=== PATIENT | male | born 1965 | race Caucasian/White ===

== ENCOUNTER 2018-08-28 06:36 | Emergency (ER) | payer OTHER ==
[2018-08-28] MEDS ORDERED: DERMABOND SKIN ADHESIVE TOP ONE (07:06)
--- NOTE | 2018-08-28 07:16 | ER ---
Nurse's Notes [facility] Name: Thomas Méndez Age: 53 yrs Sex: Male : 1965 Arrival Date: 08/28/2018 Time: 06:37 Bed 18 Private MD: Dev Ken Diagnosis: Laceration without foreign body of left eyelid and periocular area Presentation: 08/28 06:55 Presenting complaint: Patient states: he was out moving his tomato stakes and bb accidently cut his face below his left eye approx an hour ago has no loss of vision and washed the wound himself with soap and water prior to arrival. Transition of care: patient was not received from another setting of care. Complicating Factors: There are no complicating factors for this patient. Onset of symptoms was August 28, 2018. Risk Assessment: Do you want to hurt yourself or someone else? Patient reports no desire to harm self or others. Initial Sepsis Screen: Does the patient meet any 2 criteria? No. Patient's initial sepsis screen is negative. Does the patient have a suspected source of infection? No. Patient's initial sepsis screen is negative. Care prior to arrival: None. 06:55 Method Of Arrival: Ambulatory bb 06:55 Acuity: ANNABELLE 4 bb Triage Assessment: 06:59 General: Appears in no apparent distress. uncomfortable, Behavior is calm, cooperative, hj appropriate for age. Pain: Complains of pain in left lower eyelid. Injury Description: Laceration sustained to left lower eyelid. Historical: - Allergies: 06:59 PENICILLINS; bb - Home Meds: 06:59 nasal spray [Active]; antihistamine [Active]; bb - PMHx: 06:59 None; bb - PSHx: 06:59 Tonsillectomy; tib-fib fracture; femur fracture; bb - Immunization history:: Adult Immunizations up to date, Last tetanus immunization: up to date Adult Immunizations up to date, Last tetanus immunization: up to date. - Social history:: Smoking status: Patient/guardian denies using tobacco, Smoking status: Patient/guardian denies using tobacco, Patient/guardian denies using alcohol. - Ebola Screening: : No symptoms or risks identified at this time Patient negative for fever greater than or equal to 101.5 degrees Fahrenheit, and additional compatible Ebola Virus Disease symptoms Patient denies exposure to infectious person Patient denies travel to an Ebola-affected area in the 21 days before illness onset. Screenin:58 Abuse screen: Denies threats or abuse. Denies injuries from another. Nutritional hj screening: No deficits noted. Tuberculosis screening: No symptoms or risk factors identified. Fall Risk None identified. Assessment: 07:00 Musculoskeletal: No signs and/or symptoms reported regarding the musculoskeletal hj system. Injury Description: Laceration is clean. 07:21 Reassessment: steri strips applied. hj Vital Signs: 06:57 BP 134 / 93; Pulse 71; Resp 18; Temp 98.0(TE); Pulse Ox 98% on R/A; Weight 65.77 kg; hj Height 5 ft. 6 in. (167.64 cm); 06:57 Body Mass Index 23.40 (65.77 kg, 167.64 cm) ED Course: 06:37 Patient arrived in ED. am2 06:38 Dev Ken MD is Private Physician. am2 06:46 Tasneem Jones FNP-C is [facility]. kb 06:46 Dom Laird MD is Attending Physician. kb 06:55 Dony Valenzuela, RN is Primary Nurse. hj 06:57 Triage completed. bb 06:59 Arm band placed on. hj 07:01 Patient has correct armband on for positive identification. Bed in low position. Call hj light in reach. Side rails up X 1. 07:20 No provider procedures requiring assistance completed. Patient did not have IV access hj during this emergency room visit. Administered Medications: No medications were administered Outcome: 07:15 Discharge ordered by . kb 07:20 Discharged to home ambulatory. hj 07:20 Condition: stable 07:20 Discharge instructions given to patient, Instructed on discharge instructions, follow up and referral plans. wound care, Demonstrated understanding of instructions, follow-up care, wound care. 07:21 Patient left the ED. Signatures: Tasneem Jones FNP-C FNP-Ckb Ballard, Brenda RN Dony Gonzalez, RN Jenna Aguirre am2
--- NOTE | 2018-08-28 07:16 | EDPHYS ---
Physician Documentation [facility] Name: Thomas Méndez Age: 53 yrs Sex: Male : 1965 Arrival Date: 08/28/2018 Time: 06:37 Bed 18 Private MD: Dev Ken ED Physician Dom Laird HPI: 08/28 06:56 This 53 yrs old Male presents to ER via Unassigned with complaints of kb Laceration - under left eye. 06:56 The patient has a laceration related to: moving tomato plants occurred outdoors, and kb there are no complicating factors. The injury was accidental. The laceration(s) is(are) located on the below left eye. Onset: The symptoms/episode began/occurred just prior to arrival. Associated signs and symptoms: The patient has no apparent associated signs or symptoms. The patient has not experienced similar symptoms in the past. The patient has not recently seen a physician. Pt reports laceration to face, just below left eye. States he was moving tomato plants and the stand cut him just below glasses. No visual changes. Bleeding controlled. . Historical: - Allergies: 06:59 PENICILLINS; bb - Home Meds: 06:59 nasal spray [Active]; antihistamine [Active]; bb - PMHx: 06:59 None; bb - PSHx: 06:59 Tonsillectomy; tib-fib fracture; femur fracture; bb - Immunization history:: Adult Immunizations up to date, Last tetanus immunization: up to date Adult Immunizations up to date, Last tetanus immunization: up to date. - Social history:: Smoking status: Patient/guardian denies using tobacco, Smoking status: Patient/guardian denies using tobacco, Patient/guardian denies using alcohol. - Ebola Screening: : No symptoms or risks identified at this time Patient negative for fever greater than or equal to 101.5 degrees Fahrenheit, and additional compatible Ebola Virus Disease symptoms Patient denies exposure to infectious person Patient denies travel to an Ebola-affected area in the 21 days before illness onset. ROS: 06:58 Constitutional: Negative for fever, chills, and weight loss, Cardiovascular: Negative kb for chest pain, palpitations, and edema, Respiratory: Negative for shortness of breath, cough, wheezing, and pleuritic chest pain, Abdomen/GI: Negative for abdominal pain, nausea, vomiting, diarrhea, and constipation, MS/Extremity: Negative for injury and deformity, Neuro: Negative for headache, weakness, numbness, tingling, and seizure. 06:58 Skin: Positive for laceration(s), of the below left eye. Exam: 06:59 Constitutional: This is a well developed, well nourished patient who is awake, alert, kb and in no acute distress. Head/Face: Normocephalic, atraumatic. Chest/axilla: Normal chest wall appearance and motion. Nontender with no deformity. No lesions are appreciated. Cardiovascular: Regular rate and rhythm with a normal S1 and S2. No gallops, murmurs, or rubs. Normal PMI, no JVD. No pulse deficits. Respiratory: Lungs have equal breath sounds bilaterally, clear to auscultation and percussion. No rales, rhonchi or wheezes noted. No increased work of breathing, no retractions or nasal flaring. Abdomen/GI: Soft, non-tender, with normal bowel sounds. No distension or tympany. No guarding or rebound. No evidence of tenderness throughout. MS/ Extremity: Pulses equal, no cyanosis. Neurovascular intact. Full, normal range of motion. Neuro: Awake and alert, GCS 15, oriented to person, place, time, and situation. Cranial nerves II-XII grossly intact. Motor strength 5/5 in all extremities. Sensory grossly intact. Cerebellar exam normal. Normal gait. 06:59 Skin: injury, laceration(s), the wound is approximately 4 cm(s), of the below left eye, that can be described as clean, no foreign body, linear, without bleeding, well approximated without closure. Vital Signs: 06:57 BP 134 / 93; Pulse 71; Resp 18; Temp 98.0(TE); Pulse Ox 98% on R/A; Weight 65.77 kg; hj Height 5 ft. 6 in. (167.64 cm); 06:57 Body Mass Index 23.40 (65.77 kg, 167.64 cm) hj Laceration: 07:00 Wound Repair of 4cm ( 1.6in ) subcutaneous laceration to below left eye. Linear kb shaped.. Distal neuro/vascular/tendon intact. Wound prep: Moderate cleansing, Wound irrigation. Skin closed with thin layer Adhesive skin closure using Dermabond. Patient tolerated well. MDM: 06:46 Patient medically screened. kb 06:55 Data reviewed: vital signs, nurses notes. Data interpreted: Pulse oximetry: on room air kb is 100 %. Interpretation: normal. Counseling: I had a detailed discussion with the patient and/or guardian regarding: the historical points, exam findings, and any diagnostic results supporting the discharge/admit diagnosis, the need for outpatient follow up, a family practitioner, to return to the emergency department if symptoms worsen or persist or if there are any questions or concerns that arise at home. 08/28 06:56 Order name: Dermabond; Complete Time: 07:13 kb Administered Medications: No medications were administered Disposition: 09:58 Co-signature as Attending Physician, Dom Laird MD I agree with the assessment and ezra plan of care. Disposition: 08/28/18 07:15 Discharged to Home. Impression: Laceration without foreign body of left eyelid and periocular area. - Condition is Stable. - Discharge Instructions: Facial Laceration, [id number]. - Medication Reconciliation Form, Thank You Letter, Antibiotic Education, Prescription Opioid Use form. - Follow up: Emergency Department; When: As needed; Reason: Worsening of condition. Follow up: Private Physician; When: 2 - 3 days; Reason: Recheck today's complaints, Continuance of care, Re-evaluation by your physician. Signatures: Tasneem Jones, WATER RESOURCES PROGRAM DIRECTOR-C WATER RESOURCES PROGRAM DIRECTOR-Zbigniewb Dom Laird MD MD cha Ballard, Brenda, RN RN Dony Petersen RN RN hj Corrections: (The following items were deleted from the chart) 07:15 08/28/2018 07:15 Discharged to Home. Impression: Laceration without foreign body hj of left eyelid and periocular area. Condition is Stable. Forms are Medication Reconciliation Form, Thank You Letter, Antibiotic Education, Prescription Opioid Use. Follow up: Emergency Department; When: As needed; Reason: Worsening of condition. Follow up: Private Physician; When: 2 - 3 days; Reason: Recheck today's complaints, Continuance of care, Re-evaluation by your physician. kb
== END 2018-08-28 07:21 | disposition home or self-care (01) ==
LOC: ER 06:36
PROC: 0HQ1XZZ Repair Face Skin, External Approach (ICD-10-PCS; principal; 2018-08-28)
DX: S01.112A Laceration without foreign body of left eyelid and periocular area, initial encounter (principal); W45.8XXA Other foreign body or object entering through skin, initial encounter; Z88.0 Allergy status to penicillin
CPT/HCPCS: 99281

== ENCOUNTER 2018-12-27 05:39 | Emergency (ER) | payer OTHER ==
[2018-12-27] MEDS ORDERED: DERMABOND SKIN ADHESIVE TOP ONE (06:09)
--- NOTE | 2018-12-27 06:14 | ER ---
Nurse's Notes [facility] Name: Thomas Méndez Age: 53 yrs Sex: Male : 1965 Arrival Date: 12/27/2018 Time: 05:41 Bed 5 Private MD: Diagnosis: Laceration without foreign body of finger without damage to nail Presentation: 12/27 05:47 Presenting complaint: Patient states: Washing dishes last night, glass broke and cut lp1 right thumb; States continuing to bleed this morning. Transition of care: patient was not received from another setting of care. Complicating Factors: There are no complicating factors for this patient. Onset of symptoms was December 26, 2018 at 18:30. Risk Assessment: Do you want to hurt yourself or someone else? Patient reports no desire to harm self or others. Initial Sepsis Screen: Does the patient meet any 2 criteria? No. Patient's initial sepsis screen is negative. Does the patient have a suspected source of infection? No. Patient's initial sepsis screen is negative. Care prior to arrival: None. 05:47 Method Of Arrival: Ambulatory lp1 05:47 Acuity: ANNABELLE 4 lp1 Historical: - Allergies: 05:49 PENICILLINS; lp1 - Home Meds: 05:49 Marycruz Oral [Active]; Niacin Oral [Active]; lp1 - PMHx: 05:49 None; lp1 - PSHx: 05:49 leg surgery; lp1 - Immunization history:: Adult Immunizations up to date, Last tetanus immunization: up to date. - Social history:: Smoking status: Patient/guardian denies using tobacco. - Ebola Screening: : No symptoms or risks identified at this time. Screenin:50 Abuse screen: Denies threats or abuse. Denies injuries from another. Nutritional lp1 screening: No deficits noted. Tuberculosis screening: No symptoms or risk factors identified. Fall Risk None identified. Assessment: 05:49 General: Appears in no apparent distress. Behavior is calm, cooperative, appropriate lp1 for age. Pain: Denies pain. Neuro: No deficits noted. Cardiovascular: No deficits noted. Respiratory: No deficits noted. GI: No deficits noted. : No deficits noted. EENT: No deficits noted. Derm: laceration to right thumb, not actively bleeding at this time. Musculoskeletal: Range of motion: intact in all extremities. Injury Description: Laceration sustained to Right first web space is clean. Vital Signs: 05:48 BP 140 / 102; Pulse 80; Resp 18; Temp 97.1(TE); Pulse Ox 97% on R/A; Weight 72.57 kg; lp1 Height 5 ft. 4 in. (162.56 cm); Pain 0/10; 05:59 BP 132 / 88; lp1 05:48 Body Mass Index 27.46 (72.57 kg, 162.56 cm) lp1 ED Course: 05:41 Patient arrived in ED. ds1 05:42 Yuko Kan, RN is Primary Nurse. lp1 05:48 Triage completed. lp1 05:48 Arm band placed on left wrist. lp1 05:50 Patient has correct armband on for positive identification. lp1 05:55 Ok Ng PA is PHCP. jr8 05:55 Nemesio Antonio MD is Attending Physician. jr8 05:56 Ok Ng PA is PHCP. jr8 05:56 Nemesio Antonio MD is Attending Physician. jr8 05:57 Ok Ng PA is PHCP. jr8 05:57 Nemesio Antonio MD is Attending Physician. jr8 05:58 Nemesio Antonio MD is Attending Physician. jr8 06:08 Patient did not have IV access during this emergency room visit. lp1 06:08 Assist provider with laceration repair on Right first web space that was 2.5 cm. or lp1 less using Dermabond. Set up tray. Performed by Ok BRIAN Patient tolerated well. Administered Medications: No medications were administered Outcome: 06:13 Discharge ordered by . jr8 06:17 Discharged to home ambulatory. lp1 06:17 Condition: good 06:17 Discharge instructions given to patient, Instructed on discharge instructions, follow up and referral plans. wound care, Demonstrated understanding of instructions, follow-up care, wound care. 06:17 Patient left the ED. lp1 Signatures: Kaylene White ds1 Yuko Kan, RN RN lp1 Ok Ng PA PA jr8
--- NOTE | 2018-12-27 06:14 | EDPHYS ---
Physician Documentation [facility] Name: Thomas Méndez Age: 53 yrs Sex: Male : 1965 Arrival Date: 12/27/2018 Time: 05:41 Bed 5 Private MD: ED Physician Nemesio Antonio HPI: 12/27 06:13 This 53 yrs old Male presents to ER via Ambulatory with complaints of jr8 Laceration - To Thumb. 06:13 Onset: The symptoms/episode began/occurred last night. Pt was using a clean ceramic jr8 plate and it broke causing a superficial laceration to the right thumb. Historical: - Allergies: 05:49 PENICILLINS; lp1 - Home Meds: 05:49 Marycruz Oral [Active]; Niacin Oral [Active]; lp1 - PMHx: 05:49 None; lp1 - PSHx: 05:49 leg surgery; lp1 - Immunization history:: Adult Immunizations up to date, Last tetanus immunization: up to date. - Social history:: Smoking status: Patient/guardian denies using tobacco. - Ebola Screening: : No symptoms or risks identified at this time. ROS: 06:13 Constitutional: Negative for fever, chills, and weight loss, Eyes: Negative for injury, jr8 pain, redness, and discharge, ENT: Negative for injury, pain, and discharge, Neck: Negative for injury, pain, and swelling, Cardiovascular: Negative for chest pain, palpitations, and edema, Respiratory: Negative for shortness of breath, cough, wheezing, and pleuritic chest pain, Abdomen/GI: Negative for abdominal pain, nausea, vomiting, diarrhea, and constipation, Back: Negative for injury and pain, MS/Extremity: Negative for injury and deformity, Neuro: Negative for headache, weakness, numbness, tingling, and seizure. 06:13 Skin: Positive for laceration(s), of the palmar aspect of proximal phalanx of right thumb. Exam: 06:13 Constitutional: This is a well developed, well nourished patient who is awake, alert, jr8 and in no acute distress. Head/Face: Normocephalic, atraumatic. Eyes: Pupils equal round and reactive to light, extra-ocular motions intact. Lids and lashes normal. Conjunctiva and sclera are non-icteric and not injected. Cornea within normal limits. Periorbital areas with no swelling, redness, or edema. ENT: Nares patent. No nasal discharge, no septal abnormalities noted. Tympanic membranes are normal and external auditory canals are clear. Oropharynx with no redness, swelling, or masses, exudates, or evidence of obstruction, uvula midline. Mucous membranes moist. Neck: Trachea midline, no thyromegaly or masses palpated, and no cervical lymphadenopathy. Supple, full range of motion without nuchal rigidity, or vertebral point tenderness. No Meningismus. Chest/axilla: Normal chest wall appearance and motion. Nontender with no deformity. No lesions are appreciated. Cardiovascular: Regular rate and rhythm with a normal S1 and S2. No gallops, murmurs, or rubs. Normal PMI, no JVD. No pulse deficits. Respiratory: Lungs have equal breath sounds bilaterally, clear to auscultation and percussion. No rales, rhonchi or wheezes noted. No increased work of breathing, no retractions or nasal flaring. Abdomen/GI: Soft, non-tender, with normal bowel sounds. No distension or tympany. No guarding or rebound. No evidence of tenderness throughout. Back: No spinal tenderness. No costovertebral tenderness. Full range of motion. MS/ Extremity: Pulses equal, no cyanosis. Neurovascular intact. Full, normal range of motion. Neuro: Awake and alert, GCS 15, oriented to person, place, time, and situation. Cranial nerves II-XII grossly intact. Motor strength 5/5 in all extremities. Sensory grossly intact. Cerebellar exam normal. Normal gait. 06:13 Skin: injury, laceration(s), the wound is approximately 2 cm(s), of the palmar aspect of proximal phalanx of right thumb, Very superficial, only to dermal level. . Vital Signs: 05:48 BP 140 / 102; Pulse 80; Resp 18; Temp 97.1(TE); Pulse Ox 97% on R/A; Weight 72.57 kg; lp1 Height 5 ft. 4 in. (162.56 cm); Pain 0/10; 05:59 BP 132 / 88; lp1 05:48 Body Mass Index 27.46 (72.57 kg, 162.56 cm) lp1 Laceration: 06:13 Wound Repair of 2cm ( 0.8in ) subcutaneous laceration to palmar aspect of proximal jr8 phalanx of right thumb. Distal neuro/vascular/tendon intact. Wound prep: Moderate cleansing with hibiclenz by me. Skin closed with 1 thin layer Adhesive skin closure using Dermabond. Patient tolerated well. MDM: 05:55 Patient medically screened. jr8 06:11 Data reviewed: vital signs, nurses notes. Data interpreted: Pulse oximetry: on room air jr8 is 97 %. Interpretation: normal. Counseling: I had a detailed discussion with the patient and/or guardian regarding: the historical points, exam findings, and any diagnostic results supporting the discharge/admit diagnosis, the need for outpatient follow up, a family practitioner, to return to the emergency department if symptoms worsen or persist or if there are any questions or concerns that arise at home. 12/27 06:08 Order name: Dermabond; Complete Time: 06:08 lp1 Administered Medications: No medications were administered Disposition: 12/27/18 06:13 Discharged to Home. Impression: Laceration without foreign body of finger without damage to nail. - Condition is Stable. - Discharge Instructions: Laceration Care, Adult. - Medication Reconciliation Form, Thank You Letter, Antibiotic Education, Prescription Opioid Use form. - Follow up: Private Physician; When: As needed; Reason: Wound Recheck, Recheck today's complaints, Re-evaluation by your physician. - Problem is new. - Symptoms have improved. Signatures: Yuko Kan RN RN lp1 Ok Ng PA PA jr8 Corrections: (The following items were deleted from the chart) 06:17 06:13 12/27/2018 06:13 Discharged to Home. Impression: Laceration without foreign body lp1 of finger without damage to nail. Condition is Stable. Forms are Medication Reconciliation Form, Thank You Letter, Antibiotic Education, Prescription Opioid Use. Follow up: Private Physician; When: As needed; Reason: Wound Recheck, Recheck today's complaints, Re-evaluation by your physician. Problem is new. Symptoms have improved. jr8
[2018-12-27 07:55] VITALS: TEMP 97.1; O2SAT 97
[2018-12-27 07:56] VITALS: BP 132/88
== END 2018-12-27 06:17 | disposition home or self-care (01) ==
LOC: ER 05:39
PROC: 0JQJ0ZZ Repair Right Hand Subcutaneous Tissue and Fascia, Open Approach (ICD-10-PCS; principal; 2018-12-27)
DX: S61.219A Laceration without foreign body of unspecified finger without damage to nail, initial encounter (principal); W25.XXXA Contact with sharp glass, initial encounter; Y93.G1 Activity, food preparation and clean up; Y92.010 Kitchen of single-family (private) house as the place of occurrence of the external cause; Z88.0 Allergy status to penicillin
CPT/HCPCS: 99283